=== PATIENT | male | born 1990 | race Caucasian/White ===

== ENCOUNTER 2019-07-03 10:14 | Emergency (ER) | payer BC ==
[~2019-07-03] VITALS: Ht 177.8 cm; Wt 131.8 kg
[2019-07-03] MEDS ORDERED: IV NORMAL SALINE 1000ML BAG 1,000 ML IV ONE (11:00)
--- NOTE | 2019-07-03 11:05 | PHYS DOC ---
Past Medical History Past Medical History: No Pertinent History Past Surgical History: Cholecystectomy Smoking Status: Current Every Day Smoker Additional Information: 0.5 PPD Alcohol Use: Occasionally Additional Information: 2 TIMES A WEEK Adult General Chief Complaint Chief Complaint: ABDOMINAL PAIN HPI HPI Patient is a 28 year old male who presents with nausea, vomiting, diarrhea since Sunday. Patient is having generalized aching abdominal pain. He states he has not gone to work since Sunday and work will not let him come back until he has a note stating that he cannot. Patient currently rates his pain at a 6 out of 10. He states he is not been taking any medications. He states he had chills off and on. Review of Systems Review of Systems Constitutional: fever or chills [] GI: abdominal pain, nausea, vomiting, denies bloody stools. +diarrhea [] All other systems were reviewed and found to be within normal limits, except as documented in this note. Current Medications Current Medications Current Medications Medications (Trade) Dose Ordered Sig/Janett Start Time Stop Time Status Last Admin Dose Admin Info (CONTRAST GIVEN -- Rx MONITORING) 1 each PRN DAILY PRN 07/03/19 11:45 07/05/19 11:44 Iohexol (Omnipaque 300 Mg/ml) 75 ml 1X ONCE 07/03/19 11:45 07/03/19 11:46 DC Sodium Chloride 1,000 ml @ 1,000 mls/hr 1X ONCE 07/03/19 11:00 07/03/19 11:59 DC 07/03/19 11:00 1,000 MLS/HR Allergies Allergies Allergies Coded Allergies Type Severity Reaction Last Updated Verified cefaclor Allergy Intermediate 07/03/19 Yes Physical Exam Physical Exam Constitutional: Well developed, well nourished, no acute distress, non-toxic appearance. [] HENT: Normocephalic, atraumatic, bilateral external ears normal, oropharynx moist, no oral exudates, nose normal. [] Eyes: PERRLA, EOMI, conjunctiva normal, no discharge. [] Neck: Normal range of motion, no tenderness, supple, no stridor. [] Cardiovascular:Heart rate regular rhythm, no murmur [] Lungs & Thorax: Bilateral breath sounds clear to auscultation [] Abdomen: Bowel sounds normal, soft, generalized tenderness, no masses, no pulsatile masses. [] Skin: Warm, dry, no erythema, no rash. [] Back: No tenderness, no CVA tenderness. [] Extremities: No tenderness, no cyanosis, no clubbing, ROM intact, no edema. [] Neurologic: Alert and oriented X 3, normal motor function, normal sensory function, no focal deficits noted. [] Psychologic: Affect normal, judgement normal, mood normal. [] Current Patient Data Vital Signs Vital Signs Date Time Temp Pulse Resp B/P (MAP) Pulse Ox O2 Delivery O2 Flow Rate FiO2 07/03/19 10:33 98.5 79 17 151/76 (101) 96 Room Air 98.5 Lab Values Laboratory Tests Test 07/03/19 09:40 07/03/19 11:39 White Blood Count 6.4 x10^3/uL (4.0-11.0) Red Blood Count 5.40 x10^6/uL (4.30-5.70) Hemoglobin 16.4 g/dL (13.0-17.5) Hematocrit 48.3 % (39.0-53.0) Mean Corpuscular Volume 89 fL (79-100) Mean Corpuscular Hemoglobin 30 pg (25-35) Mean Corpuscular Hemoglobin Concent 34 g/dL (31-37) Red Cell Distribution Width 13.0 % (11.5-14.5) Platelet Count 178 x10^3/uL (140-400) Neutrophils (%) (Auto) 61 % (31-73) Lymphocytes (%) (Auto) 30 % (24-48) Monocytes (%) (Auto) 7 % (0-9) Eosinophils (%) (Auto) 2 % (0-3) Basophils (%) (Auto) 1 % (0-3) Neutrophils # (Auto) 3.9 x10^3/uL (1.8-7.7) Lymphocytes # (Auto) 1.9 x10^3/uL (1.0-4.8) Monocytes # (Auto) 0.5 x10^3/uL (0.0-1.1) Eosinophils # (Auto) 0.1 x10^3/uL (0.0-0.7) Basophils # (Auto) 0.0 x10^3/uL (0.0-0.2) Sodium Level 142 mmol/L (136-145) Potassium Level 4.3 mmol/L (3.5-5.1) Chloride Level 106 mmol/L (98-107) Carbon Dioxide Level 24 mmol/L (21-32) Anion Gap 12 (6-14) Blood Urea Nitrogen 14 mg/dL (8-26) Creatinine 1.0 mg/dL (0.7-1.3) Estimated GFR (Cockcroft-Gault) 89.6 BUN/Creatinine Ratio 14 (6-20) Glucose Level 96 mg/dL (70-99) Calcium Level 8.8 mg/dL (8.5-10.1) Total Bilirubin 0.7 mg/dL (0.2-1.0) Aspartate Amino Transferase (AST) 22 U/L (15-37) Alanine Aminotransferase (ALT) 47 U/L (16-63) Alkaline Phosphatase 67 U/L (46-116) Total Protein 6.6 g/dL (6.4-8.2) Albumin 3.9 g/dL (3.4-5.0) Albumin/Globulin Ratio 1.4 (1.0-1.7) Lipase 93 U/L (73-393) Urine Collection Type Void Urine Color Yellow Urine Clarity Clear Urine pH 5.5 (<5.0-8.0) Urine Specific [place] 1.025 (1.000-1.030) Urine Protein Negative mg/dL (NEG-TRACE) Urine Glucose (UA) Negative mg/dL (NEG) Urine Ketones (Stick) Negative mg/dL (NEG) Urine Blood Negative (NEG) Urine Nitrite Negative (NEG) Urine Bilirubin Negative (NEG) Urine Urobilinogen Dipstick 0.2 mg/dL (0.2 mg/dL) Urine Leukocyte Esterase Negative (NEG) Urine RBC 0 /HPF (0-2) Urine WBC Occ /HPF (0-4) Urine Squamous Epithelial Cells Occ /LPF Urine Bacteria 0 /HPF (0-FEW) Urine Mucus Slight /LPF Laboratory Tests 07/03/19 09:40 Laboratory Tests 07/03/19 09:40 EKG EKG [] Radiology/Procedures Radiology/Procedures [] Impressions: [facility] [address] [place], [place] [id number] IMAGING REPORT Signed PATIENT: ISMAEL MARC ACCOUNT: [id number] : 1990 LOCATION: ER AGE: 28 SEX: M EXAM STATUS: REG ER ORD. PHYSICIAN: ÁLVARO VELIZ APRN REASON: ABD TENDERNESS, PAIN, DIARRHEA PROCEDURE: CT ABD PELV W/ IV CONTRST ONLY Study: CT abdomen/pelvis with intravenous contrast Indication: Abdominal tenderness. Pain and diarrhea. Comparison: None. Technique: Helical CT imaging performed of the abdomen and pelvis after the intravenous administration of 75 cc Omnipaque 300 contrast. Sagittal and coronal reformats were obtained. One or more of the following individualized dose reduction techniques were utilized for this examination: 1. Automated exposure control 2. Adjustment of the mA and/or kV according to patient size 3. Use of iterative reconstruction technique. Findings: Chest: Unremarkable. Liver: Unremarkable. Gallbladder/Biliary Tree: Absent gallbladder. Normal biliary tree. Pancreas: Unremarkable. Spleen: Mildly enlarged at approximately 14 cm AP. Adrenal Glands: Unremarkable. Kidneys/Ureters/Bladder: Unremarkable. Reproductive Organs: Unremarkable. Colon: Mildly edematous colonic wall and faint hyperemia of the supplying small vasculature. This is mainly seen proximal to the sigmoid colon. Appendix: Normal. Small Bowel: Mild inflammatory changes involving the ileum. No obstruction, pneumatosis or perforation. Stomach: Unremarkable. Vasculature: Unremarkable. Lymph Nodes: Scattered mildly prominent but likely reactive lymph nodes such as at the inguinal regions. Peritoneum and Body Wall: No free fluid or air. Symmetric musculature. Bones: No erosive changes seen at the sacroiliac joints. Suspected very mild early discogenic arthrosis at L5-S1. Straightening of lumbar lordosis. Miscellaneous: None. Impression: 1. Mild inflammatory changes involving the ileum and portions of the colon most consistent with a nonspecific enterocolitis. No pneumatosis, obstruction or perforation. 2. Mild splenomegaly. Electronically signed by: ABENA CABRERA MD (07/03/2019 12:25 PM) [id number] DICTATED and SIGNED BY: ABENA CABRERA MD DATE: 07/03/19 1225 Course & Med Decision Making Course & Med Decision Making Pertinent Labs and Imaging studies reviewed. (See chart for details) Alert and oriented. Ambulatory steady gait. Skin pink warm and dry. Vital signs within normal limits. Afebrile. Abdomen is soft but has generalized tenderness with palpation. Speaks in full clear sentences. Lungs are clear to auscultation all lobes. Active bowel sounds. Denies blood in his vomit or stool. Denies any past history except a cholecystectomy. Symptoms mild and denies recent travel, bloody diarrhea, raw meats that would suggests bacterial source of colitis. Vital signs normal. Blood work normal. Afebrile. Patient will be sent home to and to drink plenty of fluids and take zofran if needed. Patient can follow up with GI or his primary care provider. [] Dragon Disclaimer Dragon Disclaimer This electronic medical record was generated, in whole or in part, using a voice recognition dictation system. Departure Departure Impression: Primary Impression: Vomiting Additional Impressions: Diarrhea Enterocolitis Disposition: HOME, SELF-CARE Condition: STABLE Referrals: NO PCP (PCP) RICHIE STARKS MD Patient Instructions: Diarrhea, [id number], Diet for Diarrhea, Adult, Nausea and Vomiting Additional Instructions: Take medication as prescribed. Drink plenty of fluids to stay hydrated. Scripts Ondansetron (ONDANSETRON ODT) 4 Mg Tab.rapdis 1 TAB PO PRN Q6-8HRS, #20 TAB Prov: ÁLVARO VELIZ COMMERCIAL ARTIST LETTERING 07/03/19 Problem Qualifiers Primary Impression: Vomiting Vomiting type: unspecified Vomiting Intractability: non-intractable Nause a presence: without nausea Qualified Codes: R11.11 - Vomiting without nausea Additional Impressions: Diarrhea Diarrhea type: unspecified type Qualified Codes: R19.7 - Diarrhea, unspecified ÁLVARO VELIZ COMMERCIAL ARTIST LETTERING Jul 03, 2019 11:05
[2019-07-03 11:19] LABS: CALCIUM 8.8 mg/dL (8.5-10.1); GFR 89.6; POTASSIUM 4.3 mmol/L (3.5-5.1)
[2019-07-03 11:22] LABS: BASO % 1 % (0-3); EOS # 0.1 x10^3/uL (0.0-0.7); EOS % 2 % (0-3); HEMATOCRIT 48.3 % (39.0-53.0); HEMOGLOBIN 16.4 g/dL (13.0-17.5); LYMPH # 1.9 x10^3/uL (1.0-4.8); LYMPH % 30 % (24-48); MEAN CORPUSCULAR HEMOGLOBIN 30 pg (25-35); MEAN CORPUSCULAR HGB CONC 34 g/dL (31-37); MEAN CORPUSCULAR VOLUME 89 fL (79-100); MONO # 0.5 x10^3/uL (0.0-1.1); MONO % 7 % (0-9); NEUT # 3.9 x10^3/uL (1.8-7.7); NEUT % 61 % (31-73); PLATELET COUNT 178 x10^3/uL (140-400); WHITE BLOOD COUNT 6.4 x10^3/uL (4.0-11.0)
[2019-07-03 11:24] LABS: ALBUMIN 3.9 g/dL (3.4-5.0); ALBUMIN/GLOBULIN RATIO 1.4 (1.0-1.7); TOTAL BILIRUBIN 0.7 mg/dL (0.2-1.0); TOTAL PROTEIN 6.6 g/dL (6.4-8.2)
[2019-07-03] MEDS ORDERED: CONTRAST GIVEN. MC PRN (11:45)
[2019-07-03] MEDS ORDERED: IOHEXOL 300 MG/ML 100ML VIAL. IV ONE (11:45)
[2019-07-03 11:47] LABS: BILIRUBIN,URINE NEGATIVE (NEG); CLARITY,URINE CLEAR; COLOR,URINE YELLOW; NITRITE,URINE NEGATIVE (NEG); PH,URINE 5.5 (<5.0-8.0); PROTEIN,URINE NEGATIVE (NEG-TRACE); UROBILINOGEN,URINE 0.2 mg/dL (0.2 mg/dL)
[2019-07-03 11:59] LABS: SQUAMOUS EPITHELIAL CELL,UR OCC /LPF
[2019-07-03 12:00] LABS: BACTERIA,URINE 0 /HPF (0-FEW); RBC,URINE 0 /HPF (0-2); WBC,URINE OCC /HPF (0-4)
--- NOTE | 2019-07-03 12:28 | RAD ---
Study: CT abdomen/pelvis with intravenous contrast Indication: Abdominal tenderness. Pain and diarrhea. Comparison: None. Technique: Helical CT imaging performed of the abdomen and pelvis after the intravenous administration of 75 cc Omnipaque 300 contrast. Sagittal and coronal reformats were obtained. One or more of the following individualized dose reduction techniques were utilized for this examination: 1. Automated exposure control 2. Adjustment of the mA and/or kV according to patient size 3. Use of iterative reconstruction technique. Findings: Chest: Unremarkable. Liver: Unremarkable. Gallbladder/Biliary Tree: Absent gallbladder. Normal biliary tree. Pancreas: Unremarkable. Spleen: Mildly enlarged at approximately 14 cm AP. Adrenal Glands: Unremarkable. Kidneys/Ureters/Bladder: Unremarkable. Reproductive Organs: Unremarkable. Colon: Mildly edematous colonic wall and faint hyperemia of the supplying small vasculature. This is mainly seen proximal to the sigmoid colon. Appendix: Normal. Small Bowel: Mild inflammatory changes involving the ileum. No obstruction, pneumatosis or perforation. Stomach: Unremarkable. Vasculature: Unremarkable. Lymph Nodes: Scattered mildly prominent but likely reactive lymph nodes such as at the inguinal regions. Peritoneum and Body Wall: No free fluid or air. Symmetric musculature. Bones: No erosive changes seen at the sacroiliac joints. Suspected very mild early discogenic arthrosis at L5-S1. Straightening of lumbar lordosis. Miscellaneous: None. Impression: 1. Mild inflammatory changes involving the ileum and portions of the colon most consistent with a nonspecific enterocolitis. No pneumatosis, obstruction or perforation. 2. Mild splenomegaly. Electronically signed by: ABENA CABRERA MD (07/03/2019 12:25 PM) [id number]
[2019-07-03] MEDS ORDERED: ONDA4TAB12 PO (12:41)
[2019-07-03 12:43] LABS: INFLUENZA A PATIENT NEGATIVE (NEGATIVE); INFLUENZA B PATIENT NEGATIVE (NEGATIVE)
[2019-07-03 12:51] VITALS: BP 116/61
== END 2019-07-03 13:02 | disposition home or self-care (01) ==
LOC: ER 10:14
DX: K52.9 Noninfective gastroenteritis and colitis, unspecified (principal); R11.10 Vomiting, unspecified; R10.84 Generalized abdominal pain; F17.200 Nicotine dependence, unspecified, uncomplicated; Z90.49 Acquired absence of other specified parts of digestive tract; Z88.1 Allergy status to other antibiotic agents
CPT/HCPCS: 36415; 74177; 80053; 81001; 83690; 85025; 87804; 96360; 99285; J7030